=== PATIENT | female | born 1960 | race Caucasian/White ===

== ENCOUNTER 2017-09-18 23:36 | Emergency (ER) | payer OTHER ==
[~2017-09-18] VITALS: Ht 167.6 cm; Wt 97.6 kg
[2017-09-18 23:41] VITALS: Ht 167.6 cm; Wt 97.6 kg
--- NOTE | 2017-09-19 00:57 | ERD ---
ER Documentation Chief Complaint Chief Complaint sob x 10 days HPI The patient is a 57-year-old female, presenting to the ER because of intermittent shortness of breath for the last 10 days. She has similar symptoms previously, has increased stress in her life. She denies fever, chills , neck pain, chest pain, abdominal pain, vomiting, dysuria, diarrhea. She took Ativan prior to arrival with good response. She does not smoke, drinks socially Medical history: Anxiety Past surgical history: None ROS All systems reviewed and are negative except as per history of present illness. Allergies Allergies: Coded Allergies: No Known Allergy (Unverified , 09/18/17) Physical Exam Vitals Vital Signs Date Time Temp Pulse Resp B/P Pulse Ox O2 Delivery O2 Flow Rate FiO2 09/19/17 02:30 98.6 79 20 131/74 Room Air 09/18/17 23:41 97.3 106 20 183/86 98 Physical Exam Const: No acute distress. Anxious Head: Atraumatic. Eyes: Normal Conjunctiva. ENT: Normal External Ears, Nose and Mouth. Neck: Full range of motion. No meningismus. Resp: Clear to auscultation bilaterally. Cardio: Regular rate and rhythm. Abd: Soft, non distended, normal bowel sounds, non tender. Skin: No petechiae or rashes. Back: No midline or flank tenderness. Ext: No cyanosis, or edema. Neur: Awake and alert. No focal deficit Psych: Normal Mood and Affect. Result Diagram: 09/19/17 0009 09/19/17 0009 Results 24 hrs Laboratory Tests Test 09/19/17 00:09 White Blood Count 7.710^3/ul Red Blood Count 4.7710^6/ul Hemoglobin 13.9g/dl Hematocrit 40.6% Mean Corpuscular Volume 85.1fl Mean Corpuscular Hemoglobin 29.1pg Mean Corpuscular Hemoglobin Concent 34.2g/dl Red Cell Distribution Width 13.7% Platelet Count 94547^3/UL Mean Platelet Volume 11.0fl Neutrophils % 46.9% Lymphocytes % 43.9% Monocytes % 6.3% Eosinophils % 2.1% Basophils % 0.5% Nucleated Red Blood Cells % 0.0/100WBC Neutrophils # 3.610^3/ul Lymphocytes # 3.410^3/ul Monocytes # 0.510^3/ul Eosinophils # 0.210^3/ul Basophils # 0.010^3/ul Nucleated Red Blood Cells # 0.010^3/ul D-Dimer 273.01ng/ml D-Dimer Comment Sodium Level 140mmol/L Potassium Level 3.8mmol/L Chloride Level 105mmol/L Carbon Dioxide Level 24mmol/L Anion Gap 15 Blood Urea Nitrogen 21mg/dl Creatinine 0.76mg/dl Glucose Level 106mg/dl Calcium Level 9.4mg/dl Troponin I < 0.012ng/ml Current Medications Medications (Trade) Dose Ordered Sig/Roshni Route PRN Reason Start Time Stop Time Status Last Admin Dose Admin Lorazepam (Ativan) 0.5 mg ONCE ONCE PO 09/19/17 02:00 09/19/17 02:01 DC Procedures/[place] [id number] Radiology Main Line: [phone] DIAGNOSTIC IMAGING REPORT Patient: LUPE JEFFERSON : 1960 Age: 57 Sex: F MR #: [id number] DOS: 09/19/17 0056 Ordering MD: AROLDO ARCHIBALD MD Location: E/R Room/Bed: PROCEDURE: Chest. CLINICAL INDICATION: Chest pain. TECHNIQUE: Single frontal view of the chest was obtained. COMPARISON: None. FINDINGS: The cardiac silhouette is magnified. The aortic arch is unremarkable. There is no focal consolidation, vascular congestion or pleural effusion. There is no pneumothorax. IMPRESSION: No evidence for active cardiopulmonary disease. .Esequiel Nunez MD, Date Time Electronically viewed and signed by .Esequiel Nunez MD, on 09/19/2017 01:42 .T/ CC: AROLDO ARCHIBALD MD EKG: Read by emergency physician Rate/Rhythm: Sinus tachycardia 111 beats/min QRS, ST, T-waves: No ST elevation, no T inversion, left atrial enlargement Impression: Abnormal EKG MEDICAL MAKING DECISION: The patient is a 57-year-old female, presenting with acute dyspnea of unclear etiology, most likely related to anxiety and stress The differential diagnoses considered include but are not limited to asthma, COPD, pneumonia, pulmonary embolus, pleural effusion, congestive heart failure. Departure Diagnosis: Primary Impression: Dyspnea Condition: Good Comments The patient's blood pressure was elevated (>120/80) but appears stable without evidence of hypertension emergency or urgency. The patient was counseled about the risks of hypertension and urged to pursue outpatient monitoring and therapy within a week with their primary care physician. I discussed the findings with the patient. I advised the patient to follow-up with the primary physician in about 1-2 days, sooner if needed and return if any concern. Disclaimer: Inadvertent spelling and grammatical errors are likely due to EHR/ dictation software use and do not reflect on the overall quality of patient care. Also, please note that the electronic time recorded on this note does not necessarily reflect the actual time of the patient encounter. AROLDO ARCHIBALD MD Sep 19, 2017 00:57
[2017-09-19 01:19] LABS: D-DIMER 273.01 ng/ml (<460)
[2017-09-19 01:25] LABS: CARBON DIOXIDE 24 mmol/L (21-31); CHLORIDE 105 mmol/L (97-110); POTASSIUM 3.8 mmol/L (3.5-5.1); SODIUM 140 mmol/L (135-144)
[2017-09-19 01:26] LABS: ANION GAP 15 (8-16); BLOOD UREA NITROGEN 21 mg/dl (7-20); CALCIUM 9.4 mg/dl (8.4-10.2); CREATININE 0.76 mg/dl (0.44-1.00); GLUCOSE 106 mg/dl (70-220)
[2017-09-19 01:28] LABS: BASOPHILS % 0.5 % (0.0-2.0); EOSINOPHILS # 0.2 10^3/ul (0.0-0.5); EOSINOPHILS % 2.1 % (0.0-7.0); HEMATOCRIT 40.6 % (37.0-47.0); HEMOGLOBIN 13.9 g/dl (12.0-16.0); LYMPHOCYTES # 3.4 10^3/ul (0.8-2.9); LYMPHOCYTES % 43.9 % (15.0-51.0); MEAN CORPUSCULAR HEMOGLOBIN 29.1 pg (29.0-33.0); MEAN CORPUSCULAR HGB CONC 34.2 g/dl (32.0-37.0); MEAN CORPUSCULAR VOLUME 85.1 fl (82.0-101.0); MONOCYTE # 0.5 10^3/ul (0.3-0.9); MONOCYTES % 6.3 % (0.0-11.0); NEUTROPHIL # 3.6 10^3/ul (1.6-7.5); NEUTROPHILS % 46.9 % (39.0-77.0); PLATELET COUNT 274 10^3/UL (140-415); RED BLOOD COUNT 4.77 10^6/ul (4.20-5.40); RED CELL DISTRIBUTION WIDTH 13.7 % (11.5-14.5); WHITE BLOOD COUNT 7.7 10^3/ul (4.8-10.8)
[2017-09-19 01:40] LABS: TROPONIN-I < 0.012 ng/ml (0.00-0.12)
--- NOTE | 2017-09-19 01:43 | RADRPT ---
PROCEDURE: Chest. CLINICAL INDICATION: Chest pain. TECHNIQUE: Single frontal view of the chest was obtained. COMPARISON: None. FINDINGS: The cardiac silhouette is magnified. The aortic arch is unremarkable. There is no focal consolidat ion, vascular congestion or pleural effusion. There is no pneumothorax. IMPRESSION: No evidence for active cardiopulmonary disease. .Esequiel Nunez MD, Date Time Electronically viewed and signed by .Esequiel Nunez MD, MD on 09/19/2017 01:42 .T/
[2017-09-19] MEDS ORDERED: LORAZEPAM 0.5 MG TAB PO ONE (02:00)
[2017-09-19 02:30] VITALS: BP 131/74; PULSE 79; RESP 20; TEMP 98.6
== END 2017-09-19 02:31 | disposition home or self-care (01) ==
LOC: E/R 23:36
DX: R06.00 Dyspnea, unspecified (principal)
CPT/HCPCS: 36415; 71010; 80048; 84484; 85025; 85378; Z7502